=== PATIENT | female | born 1950 | race Caucasian/White ===

== ENCOUNTER → 2017-05-03 | Outpatient (CLI) | payer MEDICARE ==
[2017-05-03 14:17] LABS: Basophils # (A) 0.1 k/uL (0-0.2); Basophils % (A) 1 %; CHCM 34.8; Eosinophils # (A) 0.3 k/uL (0-0.7); Eosinophils % (A) 5 %; HCT 39.9 % (34.0-46.0); HDW 2.64; HGB 13.8 gm/dL (11.4-16.0); Luc # (Auto) 0.09; Luc % (Auto) 2; Lymphocytes # (A) 1.1 k/uL (1.0-4.8); Lymphocytes % (A) 19 %; MCHC 34.6 g/dL (31.0-37.0); MCV 89.5 fL (80.0-100.0); Mean Platelet Volume 7.5; Monocytes # (A) 0.3 k/uL (0-1.0); Monocytes % (A) 6 %; Neutrophils # (A) 3.9 k/uL (1.3-7.7); Neutrophils % (A) 68 %; RBC 4.46 m/uL (3.80-5.40); RDW 13.3 % (11.5-15.5); WBC 5.8 k/uL (3.8-10.6); WBC (Perox) 5.73
[2017-05-03 14:21] LABS: Appearance,Urine Clear (Clear); Bilirubin,Urine Negative (Negative); Glucose,Urine (UA) Negative (Negative); Ketones,Urine Negative (Negative); Leukocyte Esterase,Urine Negative (Negative); Nitrite,Urine Negative (Negative); PH, Urine 6.5 (5.0-8.0); Protein,Urine Negative (Negative); Specific Gravity,Urine 1.008 (1.001-1.035); UA Billing (MACRO vs. MICRO) CHEM; Urobilinogen,Urine <2.0 mg/dL (<2.0)
[2017-05-03 14:34] LABS: Anion Gap 8 mmol/L; Blood Urea Nitrogen 13 mg/dL (7-17); Carbon Dioxide 27 mmol/L (22-30); Chloride 105 mmol/L (98-107); Non-African American GFR(MDRD) >60 (>60 ml/min/1.73 sqM); Potassium 4.1 mmol/L (3.5-5.1); Sodium 140 mmol/L (137-145)
== END | disposition home or self-care (01) ==
LOC: LABPAT 13:29
PROVIDERS: ATTEND Obstetrics & Gynecology
DX: Z01.810 Encounter for preprocedural cardiovascular examination (principal); N83.291 Other ovarian cyst, right side; I10 Essential (primary) hypertension
CPT/HCPCS: 80051; 81003; 82565; 84520; 85025; 87086

== ENCOUNTER 2017-05-10 09:40 | Inpatient (IN) | payer MEDICARE ==
[2017-05-04 09:50] VITALS: BMI 24.5
--- NOTE | 2017-05-09 12:22 | HP ---
This is a 66-year-old white female, 2, para 2, 0, 0, 2 who presents with a right adnexal mass that is increasing in size. Sonographically, the mass is somewhat concerning with small papillary projections in a limited portion of the cyst. Overall dimensions of they cyst are 3.9 x 3.1 x 3.6 cm. This has been followed conservatively. BENNY testing has been performed and is negative. The left ovary appears sonographically normal, 1.0 x 0.7 x 1.2 cm. There are small subserosal fibroids noticed as well. We are electing to proceed with surgical removal now of the ovary secondary to the sonographic evidence of small papillary projections. Patient is without pelvic pain. She is asymptomatic. She is still sexually active. PAST MEDICAL HISTORY: Significant for hypertension, hypothyroidism, psoriasis, stress urinary incontinence. PAST SURGICAL HISTORY: Breast biopsy of benign nature, I&D of vaginal abscess. CURRENT MEDICATIONS: Amlodipine once daily, Caltrate +D daily, Levoxyl 88 mcg daily, losartan potassium once daily, vitamin B12 daily. ALLERGIES: None known. FAMILY HISTORY: Significant for cerebrovascular accidents, heart disease and hypertension. REPRODUCTIVE HISTORY: Significant for two vaginal deliveries, both liveborn healthy infants. SOCIAL HISTORY: Patient is a nurse, she is a former tobacco smoker. Social alcohol only. She is . REVIEW OF SYSTEMS: Essentially negative. On exam this is a pleasant white female, 5 feet, 2 inches, 135 pounds. Vital signs are stable and she is afebrile. HEENT: Reveals no thyromegaly, no cervical lymphadenopathy, good range of motion of the neck. BREASTS: Reveal breasts to be bilaterally symmetric to inspection with no skin dimpling, nipple discharge, axillary adenopathy or discernible lesions or masses. ABDOMEN: Soft and nontender, active bowel sounds, no CVA tenderness. CHEST: Clear to auscultation in all anguiano anteriorly and posteriorly. EXTREMITIES: Reveal no edema, there are good peripheral pulses and normal range of motion. PELVIC: External genitalia is well estrogenized. Cervix appears multiparous, Pap smear is up to date and normal. Uterus is small, mobile, anteverted and anteflexed. The adnexa to pelvic examination are essentially unremarkable, right is slightly larger than left. RECTAL: Reveals FIT negative stool, good sphincter tone, no masses. IMPRESSION: Complex right adnexal cyst of increasing diameter and now with papillary projections sonographically. BENNY testing negative. We will proceed at this time with exploratory laparotomy and right salpingo-oophorectomy. I will do pelvic washings as well. I have reviewed with the patient the risks, benefits and alternatives of this plan. All questions have been answered. We reviewed the risks to include but not be exclusive of bleeding, infection, perforated or damage to bowel, bladder , ureters, blood vessels or, in deed, any pelvic or abdominal organs. Second opinion is offered and declined. ALBER
[~2017-05-10 09:40] MED LIST: DEXAMETHASONE SOD PHOSPHATE 10 MG/ML 1 ML VIAL IV ONE; HYDROmorphone 1 MG/ML 1 ML SYRINGE IVP PRN; MIDAZOLAM 2 MG/2 ML VIAL IV PRN; ONDANSETRON 4 MG/2 ML VIAL IVP ONE; SCOPOLAMINE 1.5MG/72HR PATCH TRANSDERM ONE; ceFAZolin 2 GM in SODIUM CHLORIDE 0.9% 100 ML IVPB ONE
[2017-05-24] MEDS ORDERED: ceFAZolin 2 GM in SODIUM CHLORIDE 0.9% 100 ML IVPB ONE (05:00)
[2017-05-24] MEDS: LACTATED RINGERS 1,000 ML IV SCH ×5 (06:24→17:29)
[2017-05-24] MEDS: DEXAMETHASONE SOD PHOSPHATE 4 MG/ML 1 ML VIAL IV STA ×2 (07:23→07:26)
[2017-05-24] MEDS: ONDANSETRON 4 MG/2 ML VIAL IVP STA ×2 (07:23→07:26)
[2017-05-24] MEDS ORDERED: LIDOCAINE 1% INJ 10MG/ML (20 ML MDV) ONE (07:25)
[2017-05-24] MEDS ORDERED: PROPOFOL 10 MG/ML 20 ML VIAL IV ONE (07:25)
[2017-05-24] MEDS ORDERED: fentaNYL (PF) 50 MCG/ML 2 ML AMP ONE (07:25)
[2017-05-24] MEDS ORDERED: GLYCOPYRROLATE 0.2 MG/ML 2 ML VIAL ONE (07:25)
[2017-05-24] MEDS ORDERED: MIDAZOLAM 2 MG/2 ML VIAL ONE (07:25)
[2017-05-24] MEDS ORDERED: NEOSTIGMINE 1 MG/ML 10 ML VIAL ONE (07:25)
[2017-05-24] MEDS ORDERED: ePHEDrine SULFATE/0.9% NACL/PF 50 MG/5 ML SYRINGE IV ONE (07:25)
[2017-05-24] MEDS ORDERED: ROCURONIUM BROMIDE 10 MG/ML 10 ML VIAL IV ONE (07:25)
[2017-05-24] MEDS ORDERED: SUCCINYLCHOLINE CHLORIDE 100 MG/5 ML SYR IV ONE (07:25)
[2017-05-24] MEDS ORDERED: KETOROLAC 30 MG/ML 1 ML VIAL ONE (07:25)
[2017-05-24] MEDS ORDERED: LACTATED RINGERS 1,000 ML IV ONE (08:09)
[2017-05-24] MEDS ORDERED: diphenhydrAMINE 50 MG/ML 1 ML VIAL IVP PRN ×2 (08:19→09:02)
[2017-05-24] MEDS ORDERED: SIMETHICONE 80 MG CHEWABLE PO PRN (08:19)
[2017-05-24] MEDS ORDERED: METOCLOPRAMIDE 5 MG/ML 2 ML VIAL IVP PRN (08:19)
[2017-05-24] MEDS ORDERED: Acetaminophen-Codeine 300-30mg TAB PO PRN (08:19)
[2017-05-24] MEDS ORDERED: ZOLPIDEM 5 MG TAB PO PRN (08:19)
[2017-05-24] MEDS ORDERED: ONDANSETRON 4 MG/2 ML VIAL IVP PRN ×2 (08:19→09:02)
--- NOTE | 2017-05-24 08:19 | P.OP ---
Date of Procedure: 05/24/17 Preoperative Diagnosis: Complex right adnexal mass Postoperative Diagnosis: Pathology pending Procedure(s) Performed: Surgery laparotomy, pelvic washings, bilateral salpingo-oophorectomy Implants: Anesthesia: YOLYA Surgeon: Manda Fernandez Stringed Instrument Assembler #1: Yoel Madera Estimated Blood Loss (ml): 25 IV fluids (ml): 950 Urine output (ml): 100 Pathology: other (Bilateral tubes and ovaries, pelvic washings.) Condition: stable Disposition: PACU Indications for Procedure: Operative Findings: Right ovary enlarged, approximate 4 cm in diameter, with clear excrescences noted on the external surface. Left ovary normal size, but with same clear fluid filled excrescences. Description of Procedure: Patient is brought to the operating suite where a general anesthetic is administered after a spinal with Duramorph is placed. She is positioned in the dorsal supine position. The abdomen was prepped and draped in the usual sterile fashion. Antibiotics are given. The appropriate timeout is performed to assure proper patient and procedural identification. A low transverse incision is made. This is carried down through the subcutaneous tissue which is approximate 4 cm deep. Fascia is isolated, scored and extended bilaterally with curved Huerta scissors. Peritoneum is next identified and incised. Pelvic washings are performed with care to distribute the fluid throughout the pelvis and upper abdomen. Examination under anesthesia now reveals smooth diaphragmatic surfaces, no obvious pelvic lymph nodes, no other lesions. The right ovary is identified and brought into the incision. It is clamped across the base with care to include the tube, and the right ovary is removed intact. It is sent to pathology for evaluation. The left ovary is then inspected, and noted to be normal size but also contain the superficial clear fluid expressed and's is. For this reason, it too was removed. Care is taken to include the left tube. Both pedicles are tied in a Winnie stitch with 0 Vicryl, flashed and retied for excellent hemostasis. Uterus appears normal, small, smooth and not suspicious. Pathologist is not available for inspection or gross interpretation of our specimens. Therefore closure is performed. Peritoneum was allowed to close by secondary intention. Fascia is reapproximated using 0 Vicryl in a running fashion with over ligation in the midline. Subcutaneous tissue is irrigated, clean and dry. It is reapproximated with 3-0 Vicryl in a running fashion. 4-0 undyed Vicryl issues in a subcuticular stitch for final skin closure. Steri- Strips and Mastisol are applied to the wound. Martinez is noted to be draining clear urine. All sponge needle and enhancement counts are correct at the end of our procedure. Estimated blood loss 25 mL, urine 100 mL, IV fluids 950 mL' s. Patient is brought back to the recovery room in very good condition with stable vital signs including a heart rate of 79, blood pressure 121/71, O2 saturation 100%, respirations 18.
[2017-05-24] MEDS ORDERED: NALOXONE 0.4 MG/ML 1 ML VIAL IV PRN (09:02)
[2017-05-24] MEDS ORDERED: MORPHINE SULFATE 4 MG/ML SYRINGE IVP PRN (09:02)
[2017-05-24] MEDS ORDERED: PROMETHAZINE INJ 25 MG/ML 1 ML VIAL IVPB ONE (10:11)
[2017-05-24] MEDS ORDERED: SCOPOLAMINE 1.5MG/72HR PATCH TRANSDERM STA (16:21)
[2017-05-25] MEDS: LACTATED RINGERS 1,000 ML IV SCH (02:32)
[2017-05-25] MEDS ORDERED: LEVOTHYROXINE 88 MCG TAB PO SCH (06:30)
--- NOTE | 2017-05-25 07:45 | P.DS ---
Providers Date of admission: 05/24/17 05:53 Expected date of discharge: 05/25/17 Attending physician: Manda Fernandez [facility] Course: This is a 67-year-old white female who presented with a complex-appearing right adnexal mass, including papillary and solid components. We will testing was done, and this was negative risk for malignancy. However, decision was made to remove the ovary. Medically the patient is healthy and well, please see my dictated history and physical for details. Preoperative clearance was not deemed necessary. Patient underwent exploratory laparotomy, pelvic washings, bilateral salpingo- oophorectomy under my care. She did well intraoperatively. Preliminary report from our pathologist is consistent with benign disease. Subcutaneous stitch was placed on the skin along with Steri-Strips. For details. This morning the patient is doing well. She is voiding, ambulate in, passing flatus without difficulty. Vital signs are stable and she is afebrile. The incision is slightly ecchymotic, otherwise intact, Steri-Strips applied. She has active bowel sounds. There is no CVA tenderness. Vital signs have been stable and she has remained afebrile. At this time her diet will be advanced. She will be allowed to shower. Lantus for discharge home later on today. She is in very good condition for discharge home. She will use [id number] Aleve or Advil products as needed for pain. I've asked her to call me with any fevers shakes or chills, redness or drainage of the incision, with any pain not alleviated by [id number] products, or indeed with any concerns. She is reminded no intercourse, tampons or douching. No heavy lifting, no driving for 2 weeks. Patient Condition at Discharge: Good Plan - Discharge Summary New Discharge Prescriptions: No Action amLODIPine [Norvasc] 5 mg PO AC-LUNCH Losartan Potassium [Cozaar] 100 mg PO AC-LUNCH Levothyroxine Sodium [Synthroid] 88 mcg PO DAILY [place] 1 tab PO DAILY Magnesium Oxide [Mag-Ox] 500 mg PO DAILY Cyanocobalamin (Vitamin B-12) [Vitamin B-12] 1,000 mcg PO DAILY Calcium Carbonate/Vitamin D3 [Calcium 600-Vit D3 200 Tablet] 1 tab PO DAILY Ascorbic Acid [Vitamin C] 1,000 mg PO DAILY Discharge Medication List Ascorbic Acid [Vitamin C] 1,000 mg PO DAILY 05/04/17 [History] Calcium Carbonate/Vitamin D3 [Calcium 600-Vit D3 200 Tablet] 1 tab PO DAILY [History] Cyanocobalamin (Vitamin B-12) [Vitamin B-12] 1,000 mcg PO DAILY 05/04/17 [ History] Levothyroxine Sodium [Synthroid] 88 mcg PO DAILY 05/04/17 [History] Losartan Potassium [Cozaar] 100 mg PO AC-LUNCH 05/04/17 [History] Magnesium Oxide [Mag-Ox] 500 mg PO DAILY 05/04/17 [History] [place] 1 tab PO DAILY 05/04/17 [History] amLODIPine [Norvasc] 5 mg PO AC-LUNCH 05/04/17 [History] Follow up Appointment(s)/Referral(s): Manda Fernandez MD [Primary Care Provider] - 2 Weeks Discharge Disposition: HOME SELF-CARE
[2017-05-25] MEDS ORDERED: IBUPROFEN 600 MG TAB PO PRN (08:42)
[2017-05-25 09:03] VITALS: BP 102/61; PULSE 96; RESP 16; TEMP 98.9
--- NOTE | 2017-05-25 12:15 | P.PN ---
Progress Note - Text Postoperative day 1 status post, laparotomy, under general endotracheal anesthesia, and intrathecal morphine given for postoperative analgesia, patient doing well, there is no anesthesia related complications, she had minimal twitching which controlled with Benadryl, she had no headache, further management as per her primary team
== END 2017-05-25 15:50 | disposition home or self-care (01) | DRG 743 ==
LOC: EDSTATUS 09:40 → 2ORWHC 05-24 05:53 → 6PED 05-24 09:18
PROVIDERS: ADMIT Obstetrics & Gynecology; ATTEND Obstetrics & Gynecology
PROC: 0UT20ZZ Resection of Bilateral Ovaries, Open Approach (ICD-10-PCS; 2017-05-24)
PROC: 3E1M38X Irrigation of Peritoneal Cavity using Irrigating Substance, Percutaneous Approach, Diagnostic (ICD-10-PCS; 2017-05-24)
PROC: 0UT70ZZ Resection of Bilateral Fallopian Tubes, Open Approach (ICD-10-PCS; principal; 2017-05-24 07:30)
DX: D27.0 Benign neoplasm of right ovary (principal); I10 Essential (primary) hypertension; D28.2 Benign neoplasm of uterine tubes and ligaments; E03.9 Hypothyroidism, unspecified; L40.9 Psoriasis, unspecified; N39.3 Stress incontinence (female) (male); Z87.891 Personal history of nicotine dependence; Z79.899 Other long term (current) drug therapy
CPT/HCPCS: 86850; 86900; 86901; 88108; 88305; 88307

== ENCOUNTER → 2017-05-18 | Outpatient (CLI) | payer MEDICARE | LOC: LABPAT 11:33 | PROVIDERS: ATTEND Obstetrics & Gynecology | DX: Z01.812 Encounter for preprocedural laboratory examination (principal) ==

== ENCOUNTER → 2018-01-18 | Outpatient (CLI) | payer MEDICARE ==
--- NOTE | 2018-01-20 11:09 | MM ---
Reason for exam: screening (asymptomatic). Last mammogram was performed 1 year and 10 months ago. History: Patient is postmenopausal and has history of other cancer at age 42. Excisional biopsy of the right breast. Took estrogen for 6 years. Physical Findings: A clinical breast exam by your physician is recommended on an annual basis and results should be correlated with mammographic findings. MG Screening Mammo w CAD Bilateral CC and MLO view(s) were taken. Prior study comparison: March 29, 2016, bilateral MG screening mammo w CAD. March 07, 2015, bilateral MG screening mammo w CAD. There are scattered fibroglandular densities. No significant changes when compared with prior studies. ASSESSMENT: Negative, BI-RAD 1 RECOMMENDATION: Routine screening mammogram of both breasts in 1 year.
== END | disposition home or self-care (01) ==
LOC: RADMAMWWP 12:52
PROVIDERS: ATTEND Internal Medicine
DX: Z12.31 Encounter for screening mammogram for malignant neoplasm of breast (principal)
CPT/HCPCS: 77067

== ENCOUNTER → 2019-02-09 | Outpatient (CLI) | payer MEDICARE ==
--- NOTE | 2019-02-12 09:11 | MM ---
Reason for exam: screening (asymptomatic). Last mammogram was performed 1 year and 1 month ago. History: Patient is postmenopausal and has history of other cancer at age 42. Family history of breast cancer in sister at age 63. Excisional biopsy of the right breast. Took estrogen for 6 years. Physical Findings: A clinical breast exam by your physician is recommended on an annual basis and results should be correlated with mammographic findings. MG Screening Mammo w CAD Bilateral CC and MLO view(s) were taken. Prior study comparison: January 18, 2018, bilateral MG screening mammo w CAD. March 29, 2016, bilateral MG screening mammo w CAD. The breast tissue is heterogeneously dense. This may lower the sensitivity of mammography. There is no discrete abnormality. No significant changes when compared with prior studies. ASSESSMENT: Negative, BI-RAD 1 RECOMMENDATION: Routine screening mammogram of both breasts in 1 year.
== END ==
LOC: RADMAMWWP 13:09
PROVIDERS: ATTEND Family Medicine
DX: Z12.31 Encounter for screening mammogram for malignant neoplasm of breast (principal)
CPT/HCPCS: 77067

== ENCOUNTER → 2019-12-27 | Outpatient (CLI) | payer MEDICARE ==
--- NOTE | 2019-12-27 14:42 | US ---
EXAMINATION TYPE: US thyroid st tissue head/neck DATE OF EXAM: 12/27/2019 COMPARISON: NONE CLINICAL HISTORY: R13.10 Dysphagia, unspecified. Patient has been taking thyroid medication for 20 ye ars GLAND SIZE: Right Lobe: 3.0 x 0.7 x 0.6 cm Overall Parenchyma: heterogenous Left Lobe: 2.1 x 0.6 x 0.8 cm Overall Parenchyma: heterogeneous Isthmus Thickness: 0.2 cm NODULES RIGHT: # of nodules measured on right: 0 LEFT: # of nodules measured on left: 0 ISTHMUS: # of nodules measured in the isthmus: 0 Bilateral neck scanned, no evidence of lymphadenopathy. IMPRESSION: Unremarkable thyroid ultrasound with no discrete nodule. No thyromegaly.
== END | disposition home or self-care (01) ==
LOC: RADUSWWP 14:08
PROVIDERS: ATTEND Internal Medicine Endocrinology, Diabetes & Metabolism
DX: R13.19 Other dysphagia (principal)
CPT/HCPCS: 76536

== ENCOUNTER → 2020-04-11 | Outpatient (CLI) | payer MEDICARE ==
--- NOTE | 2020-04-15 08:31 | MM ---
Reason for exam: screening (asymptomatic). Last mammogram was performed 1 year and 2 months ago. History: Patient is postmenopausal and has history of other cancer at age 42. Family history of breast cancer in sister at age 63. Excisional biopsy of the right breast. Took estrogen for 6 years. Physical Findings: A clinical breast exam by your physician is recommended on an annual basis and results should be correlated with mammographic findings. MG 3D Screening Mammo W/Cad Bilateral CC and MLO view(s) were taken. Prior study comparison: February 09, 2019, bilateral MG screening mammo w CAD. January 18, 2018, bilateral MG screening mammo w CAD. There are scattered fibroglandular densities. No significant changes when compared with prior studies. ASSESSMENT: Benign, BI-RAD 2 RECOMMENDATION: Routine screening mammogram of both breasts in 1 year.
== END | disposition home or self-care (01) ==
LOC: RADMAMWWP 15:20
PROVIDERS: ATTEND Family Medicine
DX: Z12.31 Encounter for screening mammogram for malignant neoplasm of breast (principal)
CPT/HCPCS: 77063; 77067

== ENCOUNTER → 2020-05-27 | Outpatient (CLI) | payer MEDICARE | END | disposition home or self-care (01) | LOC: LABWHC1 13:36 | PROVIDERS: ATTEND Internal Medicine Endocrinology, Diabetes & Metabolism | DX: E03.8 Other specified hypothyroidism (principal) | CPT/HCPCS: 36415; 84443 ==

== ENCOUNTER → 2021-09-10 | Outpatient (CLI) | payer MEDICARE ==
--- NOTE | 2021-09-11 11:45 | MM ---
Reason for exam: screening (asymptomatic). Last mammogram was performed 1 year and 5 months ago. History: Patient is postmenopausal and has history of other cancer at age 42. Family history of breast cancer in sister at age 63. Excisional biopsy of the right breast. Took estrogen for 6 years. Physical Findings: A clinical breast exam by your physician is recommended on an annual basis and results should be correlated with mammographic findings. MG 3D Screening Mammo W/Cad Bilateral CC and MLO view(s) were taken. Prior study comparison: April 11, 2020, bilateral MG 3d screening mammo w/cad. February 09, 2019, bilateral MG screening mammo w CAD. The breast tissue is heterogeneously dense. This may lower the sensitivity of mammography. There are benign appearing round calcifications in the right breast. There is no discrete abnormality. ASSESSMENT: Benign, BI-RAD 2 RECOMMENDATION: Routine screening mammogram of both breasts in 1 year.
== END | disposition home or self-care (01) ==
LOC: RADMAMWWP 07:33
PROVIDERS: ATTEND Family Medicine
DX: Z12.31 Encounter for screening mammogram for malignant neoplasm of breast (principal); Z78.0 Asymptomatic menopausal state; Z85.89 Personal history of malignant neoplasm of other organs and systems; Z80.3 Family history of malignant neoplasm of breast
CPT/HCPCS: 77063; 77067

== ENCOUNTER → 2023-12-08 | Outpatient (CLI) | payer MEDICARE ==
--- NOTE | 2023-12-08 14:56 | MM ---
Reason for Exam: Screening (asymptomatic). Last screening mammogram was performed 12 month(s) ago. Patient History: Menarche at age 18. First Full-Term at age 26. Left ovary removed at age 67. Right ovary removed at age 67. Postmenopausal. Other cancer, age 42. Patient used Estrogen for 6 years. Excisional Biopsy on the Right side. Sister had breast cancer, age 63. Risk Values: Estela 5 year model risk: 3.6%. NCI Lifetime model risk: 9.7%. Prior Study Comparison: 09/10/2021 Bilateral Screening Mammogram, [facility]. 11/16/2022 Bilateral MG 3D screening mammo w/cad, [facility]. 11/19/2022 Left MG 3D work up w/cad , [facility]. Tissue Density: There are scattered fibroglandular densities. Findings: Analyzed By CAD. There is no suspicious group of microcalcifications or new suspicious mass. Overall Assessment: Negative, BI-RAD 1 Management: Screening Mammogram of both breasts in [address] [facility] will attempt to contact patient to return for supplemental views and ultrasound if indicated. Patient should continue monthly self-breast exams. A clinical breast exam by your physician is recommended on an annual basis. This exam should not preclude additional follow-up of suspicious palpable abnormalities. Note on Estela scores and lifetime risk: 1. A Estela score greater than 3% is considered moderate risk. If this is the case, consider specialist referral to assess eligibility for a risk reducing agent. 2. If overall lifetime risk for the development of breast cancer is 20% or higher, the patient may qualify for future screening with alternating mammogram and breast MRI. Electronically signed and approved by: Glenn Coto DO
== END | disposition home or self-care (01) ==
LOC: RADMAMWWP 12:46
PROVIDERS: ATTEND Family Medicine
DX: Z12.31 Encounter for screening mammogram for malignant neoplasm of breast (principal); Z78.0 Asymptomatic menopausal state; Z80.3 Family history of malignant neoplasm of breast
CPT/HCPCS: 77063; 77067

== ENCOUNTER → 2025-01-15 | Outpatient (CLI) | payer MEDICARE ==
--- NOTE | 2025-01-15 15:21 | MM ---
Reason for Exam: Screening (asymptomatic). Last mammogram was performed 1 year(s) and 2 month(s) ago. Patient History: Menarche at age 18. First Full-Term at age 26. Left ovary removed at age 67. Right ovary removed at age 67. Postmenopausal. Patient has history of breast feeding. Other cancer, age 42. Patient tested for BRCA1 outcome was negative. Patient tested for BRCA2 outcome was negative. Patient used Estrogen for 6 years. Excisional Biopsy on the Right side. Sister had breast cancer, age 63. Risk Values: Estela 5 year model risk: 3.6%. NCI Lifetime model risk: 9.2%. Prior Study Comparison: 02/09/2019 Bilateral Screening Mammogram, [facility]. 04/11/2020 Bilateral Screening Mammogram, [facility]. 09/10/2021 Bilateral Screening Mammogram, [facility]. 11/16/2022 Bilateral MG 3D screening mammo w/cad, [facility]. 11/19/2022 Left MG 3D work up w/cad LT, [facility]. 12/08/2023 Bilateral MG 3D screening mammo w/cad, [facility]. Tissue Density: There are scattered areas of fibroglandular density. Findings: Analyzed By CAD. Areas of asymmetric density are unchanged. There is no suspicious group of microcalcifications or new suspicious mass in either breast. Overall Assessment: Benign, BI-RAD 2 Management: Screening Mammogram of both breasts in 1 year. See note below in regards to the patient's increased 5 year Estela score. Patient should continue monthly self-breast exams. A clinical breast exam by your physician is recommended on an annual basis. This exam should not preclude additional follow-up of suspicious palpable abnormalities. Note on Estela scores and lifetime risk: 1. A Estela score greater than 3% is considered moderate risk. If this is the case, consider specialist referral to assess eligibility for a risk reducing agent. 2. If overall lifetime risk for the development of breast cancer is 20% or higher, the patient may qualify for future screening with alternating mammogram and breast MRI. [facility], , 01/15/2025 3:18 PM. Electronically signed and approved by: Marsha Irby M.D. Radiologist
== END | disposition home or self-care (01) ==
LOC: RADMAMWWP 10:52
PROVIDERS: ATTEND Family Medicine
DX: Z12.31 Encounter for screening mammogram for malignant neoplasm of breast (principal); R92.323 Mammographic fibroglandular density, bilateral breasts; Z78.0 Asymptomatic menopausal state; Z80.3 Family history of malignant neoplasm of breast
CPT/HCPCS: 77063; 77067